=== PATIENT | male | born 2005 | race Hispanic/Latino ===

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

== ENCOUNTER 2023-05-12 08:46 | Emergency (ER) | payer SELFPAY ==
--- NOTE | ~2023-05-12 | CT_ITS ---
EXAMINATION: CT soft tissue neck w con DATE: 05/12/2023 11:56 INDICATION: Sore throat, tonsillar swelling TECHNIQUE: Computed tomography (CT) of the neck was performed with 75 cc of Omnipaque 350 intravenous contrast. The dose-length product (DLP) was 440.77 mGy-cm. Automated exposure control and iterative reconstruction technique were employed. COMPARISON: None FINDINGS: There is mild asymmetric enlargement of the right tonsil compared to the left. No definite peritonsillar abscess is identified. There are no pathologically enlarged cervical lymph nodes. The v isualized lung apices are clear. IMPRESSION: 1. Findings consistent with tonsillitis without peritonsillar abscess identified. Reviewed, dictated and finalized at location A. FEET FINISHER IMPRESSION: 1. Findings consistent with tonsillitis without peritonsillar abscess identifie d.
[2023-05-12 09:19] VITALS: BP 132/51; PULSE 91; RESP 18; TEMP 37.6; O2SAT 100
[2023-05-12] MEDS: KETOROLAC 15 MG/ML VIAL (*BKC) IV PUSH (09:40)
[2023-05-12 09:42] LABS: Hematocrit 40.4 % (42.0-52.0); Hemoglobin 13.3 g/dL (14.0-18.0); Mean Corpuscular HGB Conc 32.9 g/dl (32-36); Mean Corpuscular Hemoglobin 31.1 pg (26-34); Mean Corpuscular Volume 94.6 fl (80-100); Mean Platelet Volume 11.1 fl (7.4-10.4); Platelet Count Result 184 k/mm3 (150-375); Red Blood Count 4.27 M/mm3 (4.6-6.20); Red Cell Distribution Width 12.8 % (11.5-14.5); White Blood Count 27.5 K/mm3 (4.5-10.0)
[2023-05-12 09:56] LABS: Alanine Aminotransferase 24 U/L (6-50); Albumin Level 4.4 g/dL (3.7-5.6); Alkaline Phosphatase 89 U/L (58-237); Anion Gap 11 mmol/L (8-16); Aspartate Amino Transferase 26 U/L (17-59); Bilirubin,Total 0.6 mg/dL (0.2-1.3); Blood Urea Nitrogen 9 mg/dL (8-21); CRP 5.9 mg/dL (<1.0); Calcium 9.4 mg/dL (8.9-10.7); Carbon Dioxide 26 mmol/L (22-30); Chloride 98 mmol/L (98-107); Estimated CRCL calculation 122 ml/min; Estimated Glomerular Filt Rate > 60; Glucose 110 mg/dL (65-110); Potassium 4.1 mmol/L (3.4-5.0); Sodium 135 mmol/L (134-143)
--- NOTE | 2023-05-12 10:01 | ED.GENADULT ---
HPI - General Adult General Chief complaint: Unspecified <Bobby Fang PA-C - Last Filed: 05/12/23 15:25> Stated complaint: sore throat <Bobby Fang PA-C - Last Filed: 05/12/23 15:25> Time Seen by Provider: 05/12/23 09:00 <Bobby Fang PA-C - Last Filed: 05/12/23 15:25> Source: patient <Bobby Fang PA-C - Last Filed: 05/12/23 15:25> Mode of arrival: ambulatory <AFUA Munoz Last Filed: 05/12/23 15:25> Limitations: no limitations <Bobby Fang PA-C - Last Filed: 05/12/23 15:25> History of Present Illness HPI narrative: Is a 17-year-old male who presents to the ED with chief complaint of sore throat beginning yesterday. Reports that he had been feeling fine otherwise in started to have pain with swallowing. Reports subjective fevers but has not taken his temperature. Has not taken any medications. Denies any cough or known sick contacts. States he is able to swallow otherwise. Denies trismus or drooling. denies any further complaints. <Bobby Fang PA-C - Last Filed: 05/12/23 15:25> Related Data Allergies/adverse reactions: Allergies Allergy/AdvReac Type Severity Reaction Status Date / Time No Known Allergies Allergy Mild Verified 05/12/23 09:27 <Bobby Fang PA-C - Last Filed: 05/12/23 15:25> Review of Systems Review of Systems: All systems as dictated in HPI <Bobby Fang PA-C - Last Filed: 05/12/23 15:25> [facility] Social History Social History: Social History (Updated 10/04/21 @ 22:18 by Shayy Castro MD) Smoking status: Never smoker Alcohol intake: never Substance use: never Gender identity (if verbalized by the patient): Male <AFUA Munoz Last Filed: 05/12/23 15:25> Exam Narrative: GENERAL: Well-appearing, well-nourished, and in no acute distress. Does not appear toxic. HEAD: Normocephalic, atraumatic. EYES: PERRLA and EOMI. ENT: 3+ tonsillar hypertrophy bilaterally, uvula but somewhat deviated to the left. Mild exudate seen bilaterally, worse on the right. No trismus or drooling. Maintaining airway. Floor of the mouth intact. Slightly muffled voice. Nares clear, no rhinorrhea or epistaxis. Mucous membranes moist. Oropharynx without tonsillar hypertrophy exudate or other lesions. NECK: Supple. No adenopathy or masses. CHEST: No respiratory distress. Clear to auscultation. No wheezes rales or rhonchi HEART: Regular rate and rhythm. No murmur heard. Normal peripheral pulses. ABDOMEN: Soft, nontender, nondistended, normal active bowel sounds. MSK: Normal range of motion. No edema. SKIN: Warm, dry, no rash. NEURO: Alert and oriented x3. No focal deficits. PSYCH: Normal mood and affect. <Bobby Fang PA-C - Last Filed: 05/12/23 15:25> Course Course Emergency Course: Re-evaluation 1200: Feeling much improved. He would like to go home, pending CT scan results. <Bobby Fang PA-C - Last Filed: 05/12/23 15:25> SHIP STEWARD/PA Physician Supervision For this patient encounter, I reviewed the SHIP STEWARD or PA documentation, treatment plan, and medical decision making and/or I had [id number] time with this patient. I performed all aspects of the MDM as documented. <Ana Talavera MD - Last Filed: 05/21/23 22:20> Vital Signs Vital signs: Vital Signs Temperature 99.6 F 05/12/23 09:19 Pulse Rate 91 05/12/23 09:19 Respiratory Rate 18 05/12/23 09:19 Blood Pressure 132/51 L 05/12/23 09:19 Pulse Oximetry 100 05/12/23 09:19 Oxygen Delivery Room Air 05/12/23 09:19 Temperature 99.6 F 05/12/23 09:19 Pulse Rate 72 05/12/23 10:51 Respiratory Rate 18 05/12/23 10:51 Blood Pressure 111/58 L 05/12/23 10:51 Pulse Oximetry 100 05/12/23 10:51 Oxygen Delivery Room Air 05/12/23 09:19 <Bobby Fang PA-C - Last Filed: 05/12/23 15:25> Vital Signs Temperature 99.6 F 05/12/23 09:19 Pulse Rate 91 05/12/23 09:19 Respiratory Rate 18 11
[2023-05-12 10:04] LABS: Strep Group A RT-PCR DETECTED (Negative)
[2023-05-12 10:07] LABS: Band Neutrophils Percent 11 % (0-6); Lymphocytes Absolute Manual 2.75 K/mm3 (1.1-4.5); Monocytes Absolute Manual 1.65 K/mm3 (0.1-0.90); Monocytes Percent Manual 6 % (3-9); Neutrophils Percent Manual 73 % (46-73); Total Cells Counted 100
[2023-05-12 10:08] LABS: Platelet Estimate Adequate (Adequate); Schistocytes None Seen (NORMAL)
[2023-05-12 10:20] LABS: Influenza A QL RT-PCR Negative (Negative); Influenza B QL RT-PCR Negative (Negative); RSV RNA, RT-PCR Negative (Negative); SARS-CoV-2 RNA PCR Negative (Negative)
[2023-05-12 10:51] VITALS: BP 111/58; PULSE 72; RESP 18; O2SAT 100
[2023-05-12] MEDS: SODIUM CHLORIDE 0.9% IV 1,000 ML 999 ML IV CONT (10:51)
== END 2023-05-12 12:37 | disposition home or self-care (01) ==
PROVIDERS: Emergency Provider Physician Assistant
DX: J02.0 Streptococcal pharyngitis (principal); Z20.822 Contact with and (suspected) exposure to COVID-19
CPT/HCPCS: 36415; 70491; 80053; 85025; 86140; 87637; 87651; 96365; 96375; 99284; J0696; J1100; J1885; J7030; Q9967